=== PATIENT | male | born 1950 | race African-American/Black ===

== ENCOUNTER 2023-08-15 06:42 | Emergency (ER) | payer MEDICARE, OTHER ==
[~2023-08-15] VITALS: Ht 182.9 cm; Wt 68.0 kg
[2023-08-15 08:07] VITALS: BP 144/84; O2SAT 97
[2023-08-15] MEDS ORDERED: GUAI-450 MT (09:57)
[2023-08-15] MEDS ORDERED: TRAM50TA3 MT (09:57)
[2023-08-15] MEDS ORDERED: AMOX1TAB16 MT (09:57)
[2023-08-15 10:18] VITALS: PULSE 83; RESP 16; TEMP 98.2
== END 2023-08-15 10:19 | disposition home or self-care (01) ==
LOC: ER 06:42
DX: K04.7 Periapical abscess without sinus (principal); J44.1 Chronic obstructive pulmonary disease with (acute) exacerbation; Z88.6 Allergy status to analgesic agent; Z88.5 Allergy status to narcotic agent
CPT/HCPCS: 99281